=== PATIENT | female | born 1950 | race Caucasian/White ===

== ENCOUNTER → 2016-11-13 | Outpatient (CLI) | payer OTHER, MEDICAID | LOC: FIMAGING 09:48 | PROVIDERS: ATTEND Family Medicine | DX: M54.5 Low back pain (principal); M41.9 Scoliosis, unspecified ==

== ENCOUNTER 2017-02-20 19:06 | Emergency (ER) | payer OTHER, MEDICAID ==
--- NOTE | 2017-02-20 19:24 | EDPHY ---
H & P Stated Complaint: pain in Left leg X 6 days Time Seen by Provider: 02/20/17 19:23 HPI/ROS: CHIEF COMPLAINT: Left leg pain HISTORY OF PRESENT ILLNESS: The patient presents to the ED with a 6 day history of left leg pain. The patient reportedly has had worsening symptoms over the past several days. She denies associated numbness or weakness. The patient reports pain with palpation ambulation. Pain is located primarily along the mid aspect of the thigh, posterior to the left knee and in the left calf. The patient does have a history of chronic bilateral lower extremity pain. She takes NSAIDs for this condition. The patient denies history of fever , cough or congestion. She denies recent illness or acute complaints. REVIEW OF SYSTEMS: A comprehensive 10 point review of systems is otherwise negative aside from elements mentioned in the history of present illness. Source: Patient Exam Limitations: No limitations - Personal History Current Tetanus/Diphtheria Vaccine: Unsure Current Tetanus Diphtheria and Acellular Pertussis (TDAP): Unsure - Medical/Surgical History Hx Asthma: No Hx Chronic Respiratory Disease: No Hx Diabetes: No Hx Cardiac Disease: No Hx Renal Disease: No Hx Cirrhosis: No Hx Alcoholism: No Hx HIV/AIDS: No Hx Splenectomy or Spleen Trauma: No Other PMH: denies - Social History Smoking Status: Current every day smoker - Physical Exam Exam: General Appearance: Alert, no distress Eyes: Pupils equal and round no pallor or injection ENT, Mouth: Mucous membranes moist Respiratory: There are no retractions, lungs are clear to auscultation Cardiovascular: Regular rate and rhythm Gastrointestinal: Abdomen is soft and nontender, no masses, bowel sounds normal Neurological: A&O, normal motor function, normal sensory exam, normal cranial nerves Skin: Warm and dry, no rashes Musculoskeletal: Neck is supple nontender Extremities: Tenderness to palpation noted along the left leg and calf, 2+ dorsalis pedis and posterior tibial pulses noted, no joint effusion, no clinical evidence of septic arthritis Constitutional: Initial Vital Signs Temperature (C) 36.8 C 02/20/17 19:12 Heart Rate 82 02/20/17 19:12 Respiratory Rate 16 02/20/17 19:12 Blood Pressure 140/77 H 02/20/17 19:12 O2 Sat (%) 94 02/20/17 19:12 O2 Delivery Mode Room Air Allergies/Adverse Reactions: No Known Allergies Allergy (Unverified 02/20/17 19:10) Home Medications: Medication Instructions Recorded Levothyroxine 02/20/17 Lexapro 02/20/17 Vit B Cmplx 3/Folic AC/C/Biot 02/20/17 Medical Decision Making - Diagnostics Imaging Results: Imaging Impressions Extremity Venous Study 02/20/17 19:25 Impression: No evidence of deep vein thrombosis. Findings discussed with Evin Sue 02/20/2017 at 20:17. ED Course/Re-evaluation: Patient presents to the ED for evaluation of atraumatic left leg pain. The patient does have some mild tenderness in her left calf and medial thigh noted on exam. The patient is noted to have a normal vascular examination in the ED. Given her tenderness, she was taken for a lower extremity ultrasound which demonstrates no evidence of a DVT. The patient has no clinical evidence of a cellulitis or abscess. At this point time I do feel the patient is having musculoskeletal pain. The patient will be given a prescription for lidocaine patches. I have asked her to follow up with her primary care provider in stress the importance of a repeat ultrasound in 2 weeks for any ongoing symptoms. Differential Diagnosis: Differential diagnosis considered includes myofascial strain, DVT, arterial thrombosis, cellulitis, septic arthritis Departure - Departure Disposition: Home, Routine, Self-Care Clinical Impression: Strain of left knee and leg Condition: Good Instructions: Musculoskeletal Pain (ED) Additional Instructions: 1. Take Ibuprofen or Motrin 600 mg by mouth three times a day. 2. Please try using Lidoderm patches as prescribed. 3. Please follow up with the orthopedic surgeon you have been referred to for any persistent knee pain. 4. Please follow up with your primary care provider as scheduled. 5. Repeat ultrasound in 2 weeks for any persistent pain or swelling to insure that a blood clot has not developed. Referrals: Erica Travis DO [Primary Care Provider] - As per Instructions Gosia Gonzalez MD [Medical Doctor] - As per Instructions
[2017-02-20] MEDS ORDERED: LIDOCAINE 5% 1 EA PATCH TD ONE (20:42)
[2017-02-20] MEDS ORDERED: PATCH REMOVAL 1 EA PATCH TD SCH (21:00)
[2017-02-20 21:05] VITALS: BP 123/76; PULSE 77; RESP 18; TEMP 99; O2SAT 92
== END 2017-02-20 21:05 | disposition home or self-care (01) ==
DX: S86.912A Strain of unspecified muscle(s) and tendon(s) at lower leg level, left leg, initial encounter (principal); X58.XXXA Exposure to other specified factors, initial encounter; Y99.8 Other external cause status; Y93.89 Activity, other specified; F17.200 Nicotine dependence, unspecified, uncomplicated

== ENCOUNTER → 2018-12-03 | Outpatient (CLI) | payer OTHER, MEDICAID | LOC: FIMAGING 17:36 ==